=== PATIENT | female | born 1955 | race Caucasian/White ===

== ENCOUNTER 2016-08-29 04:26 | Emergency (ER) | payer MEDICARE ==
[~2016-08-29] VITALS: Ht 165.1 cm; Wt 86.2 kg
[2016-08-29 04:32] VITALS: BP 137/66; PULSE 87; RESP 17; TEMP 87; TEMP 97.8; O2SAT 98
--- NOTE | 2016-08-29 04:32 | NUR ---
Placed in room 05 . Placed on monitoring analyst, blood pressure machine and pulse oximeter. To gown for exam. Side rails up. Report given to LIZETTE Chappell.
--- NOTE | 2016-08-29 04:42 | NUR ---
DUSTIN Bell at bedside examining patient.
--- NOTE | 2016-08-29 04:42 | NUR ---
Pt came in by ALS for a syncopal episode in the bathroom. Pt's stated she was slumped in the bathroom and the caught her and brought her down to the floor. No obvious injuries noted. Pt has a history of dementia and is A and O x 2. Per , that is the pt baseline. Pt is cool, pale, and dry. Pt appears anxious. Mucous membranes dry. Pt placed on heel seat flap stapler and will continue to monitor. No other injuries or complaints mentioned/noted. No distress noted.
[2016-08-29] MEDS ORDERED: METO25TA6 PO (04:58)
[2016-08-29] MEDS ORDERED: LIP40 PO (04:59)
[2016-08-29] MEDS ORDERED: MEMA10TA12 PO (04:59)
[2016-08-29] MEDS ORDERED: WARF2.5T2 PO (05:00)
[2016-08-29] MEDS ORDERED: OSCD500 PO (05:01)
[2016-08-29] MEDS ORDERED: ASCO500T20 PO (05:02)
[2016-08-29] MEDS ORDERED: MULT-514 PO (05:02)
[2016-08-29 06:43] LABS: BASOPHILS # (AUTO) 0.2 K/uL (0.0-0.2); BASOPHILS % (AUTO) 1.2 % (0.0-2.0); EOSINOPHILS # (AUTO) 0.1 K/uL (0.0-0.4); EOSINOPHILS % (AUTO) 0.6 % (0.0-4.0); HEMATOCRIT 47.5 % (36-48); HEMOGLOBIN 16.1 g/dL (12.0-16.0); LYMPHOCYTES # (AUTO) 1.6 K/uL (1.0-5.5); LYMPHOCYTES % (AUTO) 12.2 % (20.5-51.5); MEAN CORPUSCULAR HEMOGLOBIN 31 pg (27-31); MEAN CORPUSCULAR HGB CONC 34 % (32-36); MEAN CORPUSCULAR VOLUME 91 fL (79.0-98.0); MONOCYTES # (AUTO) 0.9 K/uL (0.0-1.0); MONOCYTES % (AUTO) 7.3 % (1.7-9.3); NEUTROPHILS # (AUTO) 9.9 K/uL (1.8-7.7); NEUTROPHILS % (AUTO) 78.7 % (40.0-70.0); PLATELET COUNT (AUTO) 200 K/uL (130-430); RED BLOOD CELL COUNT(AUTO) 5.21 MIL/uL (4.2-6.2); RED CELL DISTRIBUTION WIDTH 13.4 % (9.0-15.0); WHITE BLOOD COUNT (AUTO) 12.7 K/uL (4.8-10.8)
[2016-08-29 07:01] LABS: CALCIUM 9.4 mg/dL (8.4-11.0); CREATININE 1.03 mg/dL (0.55-1.30); POTASSIUM 3.1 mmol/L (3.5-5.1)
[2016-08-29] MEDS ORDERED: NACL 0.9% 1,000 ML IV SCH (07:05)
[2016-08-29 07:07] LABS: ALBUMIN 3.5 g/dL (3.4-4.8); TOTAL BILIRUBIN 0.7 mg/dL (0.0-1.0); TOTAL PROTEIN, SERUM 7.3 g/dL (6.4-8.3)
[2016-08-29 07:09] LABS: INR 2.4 (0.8-1.2); PROTHROMBIN TIME 26.6 SECS (9.5-12.5)
[2016-08-29] MEDS ORDERED: POTASSIUM CHLORIDE 20 MEQ TAB.PRT.SR PO ONE (07:15)
--- NOTE | 2016-08-29 07:15 | NUR ---
Dr whaley speaking to pt abd about results
--- NOTE | 2016-08-29 07:16 | NUR ---
Recieved report from LIZETTE Chappell. Patient laying in bed in no acute distress. patient denies any complaints at this time, patient able to follow simple commands with the coaching of at bedside. Pt noted to have hx of dementia. Pt states pt looks "alot better than when she first came in." Will continue to monitor
--- NOTE | 2016-08-29 07:45 | NUR ---
Patient and given written and verbal discharge instructions and verbalizes understanding. ER MD discussed with patient and the results and treatment provided. Given copies of tests performed in ER. Patient in stable condition. ID arm band removed. IV catheter removed intact and dressing applied, no active bleeding. No Rx given. Patient and educated on pain management and to follow up with PMD. Pain Scale 0/10. Opportunity for questions provided and answered.
[2016-08-29 07:46] VITALS: BP 111/64; PULSE 88; RESP 17; TEMP 97.8
[2016-09-16 02:20] VITALS: O2SAT 98
== END 2016-08-29 07:45 | disposition home or self-care (01) ==
LOC: SED 04:26
DX: R41.82 Altered mental status, unspecified (principal); F02.81 Dementia in other diseases classified elsewhere, unspecified severity, with behavioral disturbance; Z86.73 Personal history of transient ischemic attack (TIA), and cerebral infarction without residual deficits
CPT/HCPCS: 36415; 70450; 71010; 80053; 84484; 85025; 85610; 85730; 93005; 99285; J7030